=== PATIENT | female | born 1960 | race Caucasian/White ===

== ENCOUNTER 2018-05-14 12:55 | Outpatient (CLI) | payer BC ==
--- NOTE | 2018-05-14 15:14 | ULT ---
BILATERAL RENAL ULTRASOUND: History A 58-year-old female with recurrent UTIs. FINDINGS: The right kidney measures 11.7 cm in length and the left kidney measures 10.8 cm in length. No focal mass or hydronephrosis is seen on either side. Cortical echogenicity and thickness are normal. Pro minent right renal pelvis is noted. The urinary bladder is unremarkable. IMPRESSION: Normal exam. POS: BIJAN
--- NOTE | 2018-05-14 15:25 | ULT ---
PELVIC ULTRASOUND WITH DOPPLER: (transabdominal, transvaginal, nagel scale, color flow with spectral Doppler) HISTORY: Pelvic pain. FINDINGS: The uterus measures 6.2 x 3.3 x 3.6 cm. The uterus is difficult to visualize. There is a focal mass measuring 1.7 x 2 x 1.7 cm which may represent a fibroid or thickened endometrium. The right ovary measures 2.3 x 1.2 x 1.1 cm and the left ovary measures 2.2 x 1.5 x 1.5 cm. Flow is demonstrated to both ovaries. No adnexal mass or free fluid in the cul-de-sac is seen. There is flu id in the cervical canal. IMPRESSION: Fibroid versus thickened endometrium and fluid in the endocervical canal. Further evaluation with hy sterosonography is recommended. POS: NANDINI
--- NOTE | 2018-05-14 15:45 | BD ---
BONE DENSITOMETRY USING DEXA: 05/14/18 HISTORY: Postmenopausal screening for osteoporosis. Lumbar Spine: BMD (g/cm2) L1 0.760 T-Score: -2.1 Z-Score: -1.0 L2 0.758 T-Score: -2.5 Z-Score: -1.2 L3 0.765 T-Score: -2.9 Z-Score: -1.6 L4 0.796 T-Score: -2.4 Z-Score: -1.0 L1-L4 0.770 T-Score: -2.5 Z-Score: -1.2 Femoral Neck: 0.595 T-Score: -2.3 Z-Score: -1.1 Total Femur: 0.779 T-Score: -1.3 Z-Score: -0.5 The ten year fracture risk for a major osteoporotic fracture is 12% and for hip fracture is 2%. Impression: Osteoporosis. POS: BIJAN
== END 2018-05-14 12:56 | disposition home or self-care (01) ==
LOC: BICULT 12:55
PROVIDERS: ATTEND Family Medicine
DX: Z12.31 Encounter for screening mammogram for malignant neoplasm of breast (principal); M17.0 Bilateral primary osteoarthritis of knee; M70.51 Other bursitis of knee, right knee
CPT/HCPCS: 76770; 76856; 77063; 77067; 77080